=== PATIENT | male | born 1990 | race Caucasian/White ===

== ENCOUNTER → 2024-12-15 10:54 | Outpatient (REF) | payer BC, SELFPAY | LOC: DHSLP 10:54 | PROVIDERS: ATTENDING PHYSICIAN Physician Assistant Medical | DX: G47.33 Obstructive sleep apnea (adult) (pediatric) (principal) | CPT/HCPCS: 95800 ==

== ENCOUNTER 2025-03-19 06:17 | Day surgery (SDC) | payer BC, SELFPAY ==
[2025-03-19 08:45] VITALS: BMI 47.4
[2025-03-19 08:46] VITALS: BP 135/82; BMI 47.4
[2025-03-19 10:11] VITALS: BP 109/63
[2025-03-19 10:15] VITALS: BP 100/73
[2025-03-19 10:30] VITALS: BP 112/91
[2025-03-19 10:34] VITALS: BP 103/65
== END 2025-03-19 10:40 | disposition home or self-care (01) ==
LOC: GI 06:17
PROVIDERS: ATTENDING PHYSICIAN Internal Medicine Gastroenterology
DX: Z12.11 Encounter for screening for malignant neoplasm of colon (principal); K57.30 Diverticulosis of large intestine without perforation or abscess without bleeding; K63.5 Polyp of colon; K64.8 Other hemorrhoids; Z98.0 Intestinal bypass and anastomosis status; Z86.0100 Personal history of colon polyps, unspecified
CPT/HCPCS: 45380; 88305

== ENCOUNTER 2025-05-14 15:48 | Emergency (ER) | payer BC, OTHER, SELFPAY ==
[2025-05-14 15:58] VITALS: BP 155/114
[2025-05-14 16:22] LABS: Hematocrit 47.1 % (39.0-52.0); Hemoglobin 16.0 g/dL (13.0-18.0); Mean Corp Hgb Conc. 34.0 g/dL (33.0-37.0); Mean Corpuscular Volume 83.8 fL (80.0-94.0); Nucleated Red Blood Cells % 0 % (-); Platelet Count 234 10^3/uL (130-400); Red Cell Dist. Width 12.4 % (11.5-14.5)
[2025-05-14 16:44] LABS: ALT (SGPT) 40 U/L (0-50); AST (SGOT) 28 U/L (17-59); Albumin 4.5 g/dl (3.5-5.0); Alkaline Phosphatase 76 U/L (38-126); Blood Urea Nitrogen 12 mg/dl (9-20); Calcium 9.5 mg/dl (8.4-10.2); Carbon Dioxide 25 mmol/L (22-30); Chloride 107 mmol/L (98-107); Glucose 139 mg/dl (70-99); Potassium 4.3 mmol/L (3.5-5.1); Sodium 137 mmol/L (135-145); Total Protein 7.7 g/dl (6.3-8.2); eGFR > 60.00
[2025-05-14 16:47] LABS: C-Reactive Protein 11.40 mg/L (0.0-10.00)
--- NOTE | 2025-05-14 17:35 | EDRN ---
Aysha Srivastava PA in room w/ pt at this time.
[2025-05-14 17:50] VITALS: BP 147/93
--- NOTE | 2025-05-14 17:58 | ED.GENMED ---
History of Present Illness
<Carlos Srivastava PA-C - Last Filed: 05/16/25 16:18>
General
Chief Complaint: Throat Problem
Source: patient
Time Seen by Provider: 05/14/25 17:28
History of Present Illness
History of Present Illness:
34-year-old male with past medical history of Crohn's disease, diverticulitis and pancreatitis presenting to the emergency department for evaluation of what he believes to be swollen lymph nodes under the left mandibular region and armpit which she
states has been present for approximately 1 month, no changes to the symptoms today but states due to having 4 young children he wanted to come to the ER to 'rule out any significant problems' which is why he decided come to the ER today. No
reported fevers but does note at nighttime he will often get very hot, no abnormal weight loss, no cough, reflux, chest pain or shortness of breath, abdominal pain, nausea or vomiting, recent URI-like symptoms although states that about 2 weeks ago
he was vaping with friends and this caused some increased within his throat. He notes there is a family history of thyroid disorder.
Past History
<Carlos Srivastava PA-C - Last Filed: 05/16/25 16:18>
Past History
ED Past Medical History: Asthma and Other (Crohn's, Diverticulitis)
ED Past Surgical History: Cholecystectomy, Orthopedic and Other (Partial colectomy, reversal of colostomy, abdominal wall hernia repair)
Patient has exhibited threatening behavior?: No
PSI?: No
Social History
Tobacco: Non-smoker
Alcohol: Occasional
Drug: Marijuana
Personal:
Living: with family
Employment: Employed
Review of Systems
<EBEN Baliey Last Filed: 05/16/25 16:18>
Review of Systems
All Other Systems: ROS reviewed and negative except as documented in HPI and ROS
Phy Exam
<EBEN Bailey Last Filed: 05/16/25 16:18>
Physical Exam
Physical Exam:
GENERAL: Alert , in no apparent distress, tolerating secretions
EYE: conjunctiva clear
NECK: Supple, no significant adenopathy however there is tenderness within the submandibular and submental region on the left . No trismus or stridor
ENT: o/p clr, mmm. no tonsillar edema or exudates, uvula midline, airway patent
CARDIAC: Regular rate and rhythm
LUNGS: Clear breath sounds bilaterally, no acute respiratory distress, no wheezes/rales/rhonchi
Chest wall: No clavicular lymphadenopathy, there is tenderness into the left axillary region however again no discrete lymphadenopathy or masses appreciated, no overlying erythema
NEUROLOGICAL: Alert and oriented
SKIN: Warm and dry, skin intact.
MUSCULOSKELETAL: well perfused.
PSYCH: Normal and appropriate interaction.
Scores
<EBEN Bailey Last Filed: 05/16/25 16:18>
Heart Failure Risk
Heart Failure Risk Score: Not Applicable
Heart Score for Chest Pain Patients
STEMI patient?: Not applicable
Withdrawal Assessment of Alcohol
Withdrawal Assessment Completed?: Not applicable
Course
<EBEN Bailey Last Filed: 05/16/25 16:18>
Orders/Labs/Results
Orders:
Orders
05/14/25 16:07
CMP [Comprehensive Metabolic Panel] Urgent
CRP [C-Reactive Protein] Urgent
Complete Blood Count/With Diff Urgent
Erythrocyte Sed Rate Urgent
05/14/25 17:38
CT Neck With Iv Contrast Urgent
Comment:
Reason For Exam: swelling left mandibular region x 1 month
Abnormal Lab Results
05/14/25
16:07
MPV 10.7 H fL
(7.4-10.4)
Creatinine 0.6 L mg/dL
(0.7-1.3)
Glucose 139 H mg/dl
(70-99)
C-Reactive Protein 11.40 H mg/L
(0.0-10.00)
05/14/25 16:07
05/14/25 16:07
Vital Signs
Initial and Last Documented VS:
Initial Vital Signs
Temp Pulse Resp BP Pulse Ox
98.0 F 115 20 155/114 96
05/14/25 15:58 05/14/25 15:58 05/14/25 15:58 05/14/25 15:58 05/14/25 15:58
Last Documented Vital Signs
Temp Pulse Resp BP Pulse Ox
98.0 F 97 16 147/93 96
05/14/25 15:58 05/14/25 17:50 05/14/25 17:50 05/14/25 17:50 05/14/25 18:05
Uliseslt;Sharri Herrera PA-C - Last Filed: 05/14/25 22:54>
Orders/Labs/Results
Orders:
Orders
05/14/25 16:07
CMP [Comprehensive Metabolic Panel] Urgent
CRP [C-Reactive Protein] Urgent
Complete Blood Count/With Diff Urgent
Erythrocyte Sed Rate Urgent
05/14/25 17:38
CT Neck With Iv Contrast Urgent
Comment:
Reason For Exam: swelling left mandibular region x 1 month
Abnormal Lab Results
05/14/25
16:07
MPV 10.7 H fL
(7.4-10.4)
Creatinine 0.6 L mg/dL
(0.7-1.3)
Glucose 139 H mg/dl
(70-99)
C-Reactive Protein 11.40 H mg/L
(0.0-10.00)
05/14/25 16:07
05/14/25 16:07
Vital Signs
Initial and Last Documented VS:
Initial Vital Signs
Temp Pulse Resp BP Pulse Ox
98.0 F 115 20 155/114 96
05/14/25 15:58 05/14/25 15:58 05/14/25 15:58 05/14/25 15:58 05/14/25 15:58
Last Documented Vital Signs
Temp Pulse Resp BP Pulse Ox
98.0 F 97 16 147/93 96
05/14/25 15:58 05/14/25 17:50 05/14/25 17:50 05/14/25 17:50 05/14/25 18:05
<Carlos Srivastava PA-C - Last Filed: 05/16/25 16:18>
MDM/Problems Addressed
Differential Diagnosis Includes:
Viral syndrome
[place]
Parotitis
Sialolithiasis
Malignancy
Thyroid nodule
Strep throat
Peritonsillar abscess/retropharyngeal abscess
MDM/Problems Addressed:
34-year-old male presenting to the ER for evaluation of what he believes to be lymphadenopathy within the left submandibular and submental region as well as tenderness with possible lymphadenopathy within the left axillary region. Symptoms ongoing
for 1 patient is hypertensive, mildly tachycardic in triage, tachycardia improved at time of my exam. Labs had already been initiated from triage which shows no leukocytosis, no anemia, no thrombocytopenia. Chemistry is reassuring. Very slightly
elevated CRP. Will obtain CT scan of the neck to further evaluate although I am less suspicious for any acute emergent pathology given the duration of symptoms as well as lack of physical exam findings. Anticipate patient will need to follow-up
with primary care provider on an outpatient
<Carlos Srivastava PA-C - Last Filed: 05/16/25 16:18>
*Radiology
Radiology exam reviewed: radiology read reviewed
*Pulse Oximetry
SaO2: 96
Oxygen Mode of Delivery: Room air
Patient hypoxic: no
<Sharri Herrera PA-C - Last Filed: 05/14/25 22:54>
*Critical Care Note
Total Time (30-74mins, 75-104mins- exclusive of procedures): Not Applicable
<Carlos Srivastava PA-C - Last Filed: 05/16/25 16:18>
Patient Management
Escalation/DeEscalation of care consider admission/obs:
CT noted for slightly enlarged lymph node however benign appearing. Patient stable for discharge and outpatient follow-up with primary care provider.
<Sharri Herrera PA-C - Last Filed: 05/14/25 22:54>
Update Note
Update Note:
I assumed care of patient awaiting CT results. Neck CT reveals an 8.4 mm mildly enlarged benign-appearing left cervical lymph node. Findings discussed with patient and copy of radiology report provided. Advised watchful waiting and follow-up with
PCP. Did discuss that he may need a biopsy if the lymphadenopathy does not improve. Patient discharged in stable condition.
ED Attending Note
<Carlos Srivastava PA-C - Last Filed: 05/16/25 16:18>
-
Portions of this chart may have been created with voice recognition software.� Occasional wrong word or��sound alike� substitutions may have occurred due to the inherent limitations of voice recognition software.
Discharge Plan
Departure
Patient Disposition: Home (Routine Discharge)
Date of Disposition: 05/14/25
Time of Disposition: 21:13
Patient with high blood pressure during this ER visit?: Yes
Discharge Problem:
Anterior cervical adenopathy
Instructions: Swollen lymph nodes in adults
Prescriptions:
No Action
losartan 100 mg Tablet
100 mg PO DAILY
esomeprazole magnesium [Nexium] 20 mg Capsule,Delayed Release(Dr/Ec)
20 mg PO DAILY
albuterol sulfate [ProAir HFA] 90 mcg/actuation Hfa Aerosol Inhaler
2 puff INHALATION QID PRN (Reason: asthma)
Referrals:
Rosangela Scott PA-C [Family Provider, Family Practice]
Stand Alone Forms: Return to Work
Activity Restrictions/Additional Instructions:
Please follow-up with your family doctor. You may need a biopsy of the lymph node if the swelling does not improve in the next several weeks.
Interventions
Interventions:
*Risk Screen - Suicide Last Done: 05/14/25 17:50
*General Assessment Last Done: 05/14/25 17:50
*Neglect/Abuse Screening Last Done: 05/14/25 17:50
*ED- Fall Risk Assessment Last Done: 05/14/25 17:50
*ED COVID-19 Vaccine History Last Done: 05/14/25 17:50
*Nursing Disposition Last Done: 05/14/25 21:35
ED-EENT Assessment Last Done: 05/14/25 17:50
ED- Pulmonary Assessment Last Done: 05/14/25 17:50
Discharge Date and Time
Discharge Date/Time: 05/14/25 21:36
Print Language: THAI
[2025-05-14 18:01] VITALS: BMI 46.1
== END 2025-05-14 21:36 | disposition home or self-care (01) ==
LOC: EMR 15:48
PROVIDERS: Emergency Medicine; EMERGENCY PHYSICIAN Emergency Medicine; FAMILY PHYSICIAN Physician Assistant Medical
DX: R59.0 Localized enlarged lymph nodes (principal); R22.1 Localized swelling, mass and lump, neck; M79.622 Pain in left upper arm; R03.0 Elevated blood-pressure reading, without diagnosis of hypertension; K50.90 Crohn's disease, unspecified, without complications; K57.92 Diverticulitis of intestine, part unspecified, without perforation or abscess without bleeding; Z87.19 Personal history of other diseases of the digestive system; J45.909 Unspecified asthma, uncomplicated; Z90.49 Acquired absence of other specified parts of digestive tract; Z98.0 Intestinal bypass and anastomosis status
CPT/HCPCS: 99284; 70491; 80053; 85025; 85652; 86140; Q9967

== ENCOUNTER 2025-06-06 19:20 | Emergency (ER) | payer BC, OTHER, SELFPAY ==
[2025-06-06] VITALS (19 sets, daily range): BP systolic 97–175; BP diastolic 46–95; PULSE 77–88; BMI 47.7
[2025-06-06 19:37] LABS: Hematocrit 43.1 % (39.0-52.0); Hemoglobin 14.2 g/dL (13.0-18.0); Mean Corp Hgb Conc. 32.9 g/dL (33.0-37.0); Mean Corpuscular Volume 86.7 fL (80.0-94.0); Nucleated Red Blood Cells % 0 % (-); Platelet Count 231 10^3/uL (130-400); Red Cell Dist. Width 12.6 % (11.5-14.5)
--- NOTE | 2025-06-06 19:42 | ED.GENMED ---
History of Present Illness
General
Chief Complaint: Overdose Unintentional
Time Seen by Provider: 06/06/25 19:29
Nursing documentation reviewed up to this point in time: agreed with
History of Present Illness
History of Present Illness:
34-year-old male presents the ER for evaluation of a near syncopal episode that occurred at home just prior to arrival. Patient states that he accidentally took an additional dose of 100 mg losartan this morning. He states that he had been feeling
well throughout the day although admittedly under increased rest as he was fired from his job yesterday. He has been eating and drinking normally. He states that he had at least 3 bottles of water today. He states that he walked into another room
of his house to sit down and became overwhelmed with the feeling that he was going to faint. He then also felt a popping discomfort in his abdomen with some accompanying chest pressure. He felt diaphoretic and experienced tunnel vision. He sat
down and asked his to call 911. On arrival, patient was hypotensive per prehospital personnel. Patient was given IV fluids en route to the ER and is feeling much better at the current time. He feels generally fatigued but no longer is
experiencing chest pain. He does not feel short of breath. He states that he has had 2 prior fainting episodes in his life, when he was a teenager. Upon discussion of the events surrounding his prior syncopal episodes it sounds very much
vasovagal in etiology. He has no prior personal history of ACS. Significant other at bedside reports the patient has also been complaining of nosebleeds daily. Patient denies any injury or trauma. He states the blood has been dark in color and
limited to the right nostril. No bleeding associated with the near syncopal episode today
Past History
Past History
ED Past Medical History: Asthma and Other (Crohn's, Diverticulitis)
ED Past Surgical History: Cholecystectomy, Orthopedic and Other (Partial colectomy, reversal of colostomy, abdominal wall hernia repair)
Patient has exhibited threatening behavior?: No
PSI?: No
Social History
Tobacco: Non-smoker
Alcohol: Occasional
Drug: Marijuana
Personal:
Living: with family
Employment: Employed
Phy Exam
Physical Exam
Physical Exam:
Patient is awake, alert, obese, appears in no acute distress, mucous membranes moist, conjunctiva pink, head is normocephalic atraumatic, PERRL, EOMI, nose exam reveals mild dry appearing nasal mucosa without evidence of excoriation or trauma, heart
regular rate and rhythm without murmurs or ectopy, lungs are clear to auscultation without wheezes rales or rhonchi, abdomen is soft and nontender, extremities without edema, 2+ DP pulses present symmetric bilateral feet, GCS is 15
Course
Orders/Labs/Results
Orders:
Orders
06/06/25 19:23
EKG [Electrocardiogram (*1)] Urgent
Reason for Study: Fatigue / Weakness
EKG- Treatment ONCE
06/06/25 19:24
Complete Blood Count/With Diff Urgent
Comprehensive Metabolic Panel Urgent
06/06/25 19:42
0.9% Sodium Chloride 1000 ml [Nss] 1,000 ml IV BOLUS
CR Chest - 2 Views Urgent
Comment:
Reason For Exam: chest pain
06/06/25 19:51
Troponin I Urgent
06/06/25 21:09
Orthostatic VS- Treatment ONCE
06/06/25 21:21
EKG- Treatment ONCE
06/06/25 22:19
Troponin I Urgent
06/06/25 22:20
Electrocardiogram (*1) Urgent
Reason for Study: Chest Pain
Abnormal Lab Results
06/06/25
19:24
MCHC 32.9 L g/dL
(33.0-37.0)
MPV 10.6 H fL
(7.4-10.4)
Absolute Neuts (auto) 6.6 H 10^3/uL
(1.4-6.5)
Absolute Monos (auto) 0.8 H 10^3/uL
(0.1-0.6)
Glucose 192 H mg/dl
(70-99)
06/06/25 19:24
06/06/25 19:24
CBC very reassuring, BUN and creatinine within normal limits, similar to prior from 05/14/2025
Vital Signs
Initial and Last Documented VS:
Initial Vital Signs
Pulse Resp BP
93 16 111/65
06/06/25 19:22 06/06/25 19:22 06/06/25 19:22
Last Documented Vital Signs
Temp Pulse Resp BP Pulse Ox
98.5 F 78 16 133/54 94
06/06/25 19:26 06/06/25 23:05 06/06/25 23:05 06/06/25 23:07 06/06/25 23:05
MDM/Problems Addressed
Differential Diagnosis Includes:
Differential diagnosis to consider but not limited to electrolyte dyscrasia, dehydration, accidental overdose, panic attack, vasovagal episode, arrhythmia along with other etiologies considered
*Pulse Oximetry
SaO2: 94
Oxygen Mode of Delivery: Room air
Patient hypoxic: no
*EKG
Interpreted by ED Provider?: Yes (I independently viewed and interpreted twelve-lead EKG showing normal sinus rhythm, normal axis, normal intervals, rate 95, no ST elevation, no change compared to prior from 09/15/2021)
*Associate Professor Of Philosophy Interpretation
Rate: normal (I dependently viewed and interpreted rhythm strip showing normal sinus rhythm, no ectopy)
*Critical Care Note
Total Time (30-74mins, 75-104mins- exclusive of procedures): Not Applicable
Update Note
Update Note:
Patient and significant other present at bedside agree with plan for 1 L IV fluids and screening labs. Given associated chest pain will obtain chest x-ray and troponin. They agree with plan at current and have no questions
Once repeated troponin was available, I discussed with patient and feeling members present at bedside very reassuring workup in the ER. Patient is not orthostatic on his vital signs. I discussed with him need to continue taking his medications as
prescribed and likely vasovagal etiology of his symptoms. I discussed with patient benefit of follow-up with primary care physician for reevaluation and further care. Patient and family present at bedside expressed understanding of discharge plan
and had no questions prior to leaving the department.
ED Attending Note
-
Portions of this chart may have been created with voice recognition software.� Occasional wrong word or��sound alike� substitutions may have occurred due to the inherent limitations of voice recognition software.
Discharge Plan
Departure
Patient Disposition: Home (Routine Discharge)
Date of Disposition: 06/06/25
Time of Disposition: 23:11
Patient with high blood pressure during this ER visit?: No
Discharge Problem:
Near syncope
Instructions: Vasovagal Response
Prescriptions:
No Action
losartan 100 mg Tablet
100 mg PO DAILY
esomeprazole magnesium [Nexium] 20 mg Capsule,Delayed Release(Dr/Ec)
20 mg PO DAILY
albuterol sulfate [ProAir HFA] 90 mcg/actuation Hfa Aerosol Inhaler
2 puff INHALATION QID PRN (Reason: asthma)
Referrals:
Rosangela Scott PA-C [Family Provider, Family Practice]
Activity Restrictions/Additional Instructions:
Continue your current medications. Please contact your primary care physician to schedule appointment for follow-up. Return to the ER for any concerns
Interventions
Interventions:
*Risk Screen - Suicide Last Done: 06/06/25 19:25
*General Assessment Last Done: 06/06/25 19:28
*Neglect/Abuse Screening Last Done: 06/06/25 19:25
*ED- Fall Risk Assessment Last Done: 06/06/25 19:28
*ED COVID-19 Vaccine History Last Done: 06/06/25 19:28
*Nursing Disposition Last Done: 06/06/25 23:18
ED- Cardiac Assessment Last Done: 06/06/25 19:29
ED- Neurological Assessment Last Done: 06/06/25 19:29
ED-Psychological Assessment Last Done: 06/06/25 19:29
ED- Pulmonary Assessment Last Done: 06/06/25 19:29
Discharge Date and Time
Discharge Date/Time: 06/06/25 23:20
Print Language: PUERTO RICAN
[2025-06-06 19:44] LABS: ALT (SGPT) 36 U/L (0-50); AST (SGOT) 27 U/L (17-59); Albumin 4.1 g/dl (3.5-5.0); Alkaline Phosphatase 73 U/L (38-126); Blood Urea Nitrogen 14 mg/dl (9-20); Calcium 8.6 mg/dl (8.4-10.2); Carbon Dioxide 24 mmol/L (22-30); Chloride 105 mmol/L (98-107); Estimated Creatinine Clearance > 125 ml/min; Glucose 192 mg/dl (70-99); Potassium 3.7 mmol/L (3.5-5.1); Sodium 137 mmol/L (135-145); Total Protein 7.0 g/dl (6.3-8.2); eGFR > 60.00
[2025-06-06] MEDS: NSS 1000 IV (19:57)
[2025-06-06 20:29] LABS: Troponin I < 0.012 ng/ml
[2025-06-06 22:54] LABS: Troponin I < 0.012 ng/ml
== END 2025-06-06 23:20 | disposition home or self-care (01) ==
LOC: EMR 19:20
PROVIDERS: Emergency Medicine; EMERGENCY PHYSICIAN Emergency Medicine; FAMILY PHYSICIAN Physician Assistant Medical
DX: R55 Syncope and collapse (principal); J45.909 Unspecified asthma, uncomplicated; K50.90 Crohn's disease, unspecified, without complications; E66.9 Obesity, unspecified; Z68.42 Body mass index [BMI] 45.0-49.9, adult; Z90.49 Acquired absence of other specified parts of digestive tract
CPT/HCPCS: 99284; 71046; 80053; 84484; 85025; 93005